=== PATIENT | male | born 1980 | race Caucasian/White ===

== ENCOUNTER 2017-01-08 16:41 | Emergency (ER) | payer MEDICAID, OTHER ==
[~2017-01-08] VITALS: Ht 157.5 cm; Wt 91.5 kg
[2017-01-08 16:44] VITALS: Ht 157.5 cm; Wt 91.5 kg
--- NOTE | 2017-01-08 18:43 | ERD ---
ER Documentation Chief Complaint Date/Time DATE: 01/08/17 TIME: 18:39 Chief Complaint Complains of a sorethroat x 3 days ago HPI This pleasant 36-year-old male patient presents to emergency department with complaint ofsore throat and body aches x 7 days, intermitted fever a dry throat in the morning, pt reports SOB in the morning .States his tells him he snores. Patient denies history of asthma, COPD, or sleep apnea. Denies dizziness, chest pain. ROS All systems reviewed and are negative except as per history of present illness. Allergies Allergies: Coded Allergies: No Known Allergy (Unverified , 01/08/17) PMhx/Soc Medical and Surgical Hx: pt denies Medical Hx, pt denies Surgical Hx History of Surgery: No Anesthesia Reaction: No Hx Neurological Disorder: No Hx Respiratory Disorders: No Hx Cardiac Disorders: No Hx Psychiatric Problems: No Hx Miscellaneous Medical Probl: No Hx Alcohol Use: No Hx Substance Use: No Hx Tobacco Use: No Smoking Status: Never smoker Physical Exam Vitals Vital Signs Date Time Temp Pulse Resp B/P Pulse Ox O2 Delivery O2 Flow Rate FiO2 01/08/17 16:44 98.0 81 20 130/71 99 Vitals stable, triage notes reviewed Physical Exam Const: Well-nourished well-hydrated well-appearing no acute distress Head: Atraumatic Eyes: Normal Conjunctiva ENT: Lateral tympanic membranes are erythemic, auditory canals are clear, nasal mucosa edematous, mucus noted, pharynx is bright angry red, with blood streaks and white exudate. Neck: Full range of motion..~ No meningismus.No cervical chain nodes Resp: Clear to auscultation bilaterally No rales wheezes or rhonchi Cardio: Abd: Skin: No petechiae or rashes Back: Ext: Neur: Awake and alert Psych: Normal Mood and Affect Procedures/MDM This 36-year-old male patient presents to emergency department with sore throat intermittently for the last 7 days. Has worsened over the last 3 days. Patient reports that his throat is dry in the morning has having difficulty breathing, wakes feeling like he is short of breath. Patient states that it feels like something is in his throat. Denies any known injury or swallowing foreign bodies states that he ate fish 3 or 4 weeks ago. He denies any difficulty swallowing, is able to swallow his own saliva, denies any change in voice. I have little clinical suspicion for a foreign body, peritonsillar abscess, uvulitis. Physical exam and history support a exudative pharyngitis, patient will be treated with Augmentin 875 1 tab p.o. twice daily 10 days, gargle with salt water, Tylenol or Motrin [id number] analgesic for pain, increase fluids, increase rest, return to emergency department if unable to swallow food, worsening of symptoms on antibiotic, change in voice. Patient is stable with no new complaints during ER course, clinically there is no current evidence to suggest meningitis, sepsis, acute abdomen, acute coronary syndromes , pulmonary embolism or any other emergent condition appearing to require further evaluation or hospitalization. I feel the patient is stable for discharge at this time. I have discussed results, examination findings, the treatment plan with the patient and family present prior to discharge. Indications for emergent reevaluation, side effects of medication were also discussed. All questions were answered. Patient verbalizes understanding and agrees with plan of care. Departure Diagnosis: Primary Impression: Exudative pharyngitis Condition: Good Patient Instructions: Pharyngitis, Strep (Presumed) [facility] Additional Instructions: Exudativ Thank you for for coming to [facility] for your care today. Please ask your nurse or provider if you have questions about your care today and do not leave until all your questions have been answered. Please use any medications given as directed and follow-up with your doctor (or the doctor you were referred to) in the next 2-3 days. If you do not have a primary care doctor you may follow up at the [facility] (listed below). You may also use motrin and tylenol as needed for fever and/or pain unless instructed otherwise by your provider or nurse. Indications for more urgent follow-up have been discussed, but you may return to the Emergency Department at ANY time for any worrisome or worsening symptoms. If you have abdominal pain, please know that no test or exam you received is perfect and you should follow up within 8 hours for continued pain. If you had any imaging studies today, such as an X-Ray or CT Scan, these studies will be reviewed later by a radiologist. You will be called if there are important findings that were not identified today, so make sure the contact information you provided at registration is correct. If you received any narcotic pain control medicine today, such as Vicodin, Morphine or Dilaudid, your coordination and judgment may be affected for a number of hours. Please do not drive or operate heavy machinery, and you may want someone to assist you at home. If you were given a prescription for narcotic medication, be aware that it is very addictive- use sparingly and only if necessary. E pharyngitis JOSI TOLEDO Jan 08, 2017 18:43
[2017-01-08] MEDS ORDERED: AMOX1TAB10 PO (18:59)
[2017-01-08 19:26] VITALS: PULSE 80; RESP 20; TEMP 98.6
== END 2017-01-08 19:26 | disposition home or self-care (01) ==
LOC: FTE 16:41
DX: J02.9 Acute pharyngitis, unspecified (principal)
CPT/HCPCS: 99283

== ENCOUNTER 2017-06-15 19:25 | Emergency (ER) | END 2017-06-16 05:39 | disposition home or self-care (01) ==